=== PATIENT | male | born 1995 | race American Indian/Alaskan Native ===

== ENCOUNTER 2019-08-29 09:23 | Outpatient (CLI) | payer OTHER ==
--- NOTE | 2019-08-29 10:23 | XRay Report ---
AP AND LATERAL VIEWS OF BOTH KNEES INDICATION: BILATERAL INTENSE KNEE PAIN. COMPARISON: No relevant prior imaging study available. FINDINGS: Right knee: Lateral distal femoral cortical plate with screw fixation projects in expected position a cross a healed distal femoral fracture. There is chronic defect in the proximal right fibular diaphys is. There is bridging between the proximal fibula and tibia which may be due to posttraumatic deformi ty. 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 There is a punctate intra-articular osteochondral body adjacent to the medial tibial plateau. There is subtle lateral sub luxation of the tibial plateau with respect to the distal femur. No joint effusion is seen. There is mild anterior soft tissue swelling. Left knee: There is a defect in the proximal left femur diaphysis which may be an osteotomy defect. T here is remodeling at the proximal tibial diaphysis which is likely due to remote, healed fracture. T here is mild tricompartmental joint space narrowing. No acute fracture or joint effusion. Mild anteri or soft tissue swelling. IMPRESSION: 1. Postsurgical/posttraumatic changes as above. 2. 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 3. Nonspecific soft tissue swelling anteriorly. Signer Name: Edi Swann MD Signed: 08/29/2019 10:19 AM Workstation Name: [id number]
== END 2019-08-29 09:24 | disposition home or self-care (01) ==
LOC: XRAY 09:23
PROVIDERS: ATTEND Internal Medicine
DX: S93.01XD Subluxation of right ankle joint, subsequent encounter (principal); M17.11 Unilateral primary osteoarthritis, right knee; M17.12 Unilateral primary osteoarthritis, left knee; M79.89 Other specified soft tissue disorders; X58.XXXD Exposure to other specified factors, subsequent encounter; Z87.81 Personal history of (healed) traumatic fracture